=== PATIENT | female | born 1975 | race Caucasian/White ===

== ENCOUNTER → 2023-08-21 | Outpatient (CLI) | payer BC | LOC: COL.RAD 10:15 | DX: H73.892 Other specified disorders of tympanic membrane, left ear (principal); H90.A32 Mixed conductive and sensorineural hearing loss, unilateral, left ear with restricted hearing on the contralateral side; H90.A21 Sensorineural hearing loss, unilateral, right ear, with restricted hearing on the contralateral side ==